=== PATIENT | male | born 1965 | race African-American/Black ===

== ENCOUNTER 2016-09-26 17:05 | Emergency (ER) | payer OTHER ==
[~2016-09-26] VITALS: Ht 182.9 cm; Wt 173.0 kg
[~2016-09-26 17:05] MED LIST: ATENOLOL-CHLOR1 EAC1 PO; ATENOLOL-CHLOR1 EAC2 PO; CLONIDINE HCL0.1 MG; COLCRYS0.6 MG; Catapres PO; Cleocin PO; IBUPROFEN800 MG PO; INDOMETHACIN25 MG; INDOMETHACIN50 MG PO; K-Dur PO; KEFLEX500 MG PO; NAPROSYN500 MG PO; NORCO 5/3251 TABLET PO; Norvasc PO; Tenormin PO
[2016-09-26] MEDS ORDERED: KEFLEX500 MG PO ×2 (19:54→20:07)
[2016-09-26] MEDS ORDERED: INDOCIN50 MG PO ×2 (19:54→20:07)
[2016-09-26 20:19] VITALS: BP 144/99
== END 2016-09-26 20:20 | disposition home or self-care (01) ==
LOC: EME 17:05
DX: L03.116 Cellulitis of left lower limb (principal); M10.9 Gout, unspecified; I10 Essential (primary) hypertension; G47.30 Sleep apnea, unspecified; Z87.891 Personal history of nicotine dependence
CPT/HCPCS: 73630; 99281; 99284